=== PATIENT | female | born 2000 | race African-American/Black ===

== ENCOUNTER 2020-12-06 23:59 | Emergency (ER) | payer MEDICAID ==
[~2020-12-06] VITALS: Ht 170.2 cm; Wt 70.0 kg
[2020-12-07] MEDS ORDERED: MORPHINE SULFATE 4 MG/ML CPJ (NOT FOR IM USE) IV ONE (00:30)
[2020-12-07] MEDS ORDERED: ONDANSETRON 4MG ODT PO ONE (00:30)
[2020-12-07 00:36] VITALS: BP 136/84
[2020-12-07] MEDS ORDERED: IBUP-2029 MT (01:38)
[2020-12-07] MEDS ORDERED: HYDR-4346 MT (01:38)
== END 2020-12-07 02:23 | disposition home or self-care (01) ==
LOC: ER 23:59
DX: M54.9 Dorsalgia, unspecified (principal); V43.62XA Car passenger injured in collision with other type car in traffic accident, initial encounter; Y93.89 Activity, other specified; Y92.410 Unspecified street and highway as the place of occurrence of the external cause
CPT/HCPCS: 72125; 72128; 72131; 73030; 96374; 99285; J2270; Q0162